=== PATIENT | female | born 1990 | race African-American/Black ===

== ENCOUNTER 2020-01-17 07:32 | Outpatient (CLI) | payer MEDICAID, SELFPAY ==
--- NOTE | ~2020-01-17 | US_ITS ---
EXAMINATION: US OB <= 14 weeks fetus DATE: 01/17/2020 09:11 INDICATION: Gestational dating. TECHNIQUE: Real-time transabdominal and transvaginal obstetric ultrasound. FINDINGS: No prior studies for comparison. The uterus measures 14.1 x 9.6 x 9.8 cm. There is an intrauterine gestational sac, with pole id entified. The crown rump length measures 5.67 cm, which correlates with a estimated gestational age of 12 weeks 2 days. heart tones are identified measuring 141 bpm. There is a small subchorion ic hemorrhage measuring 9 x 7 x 2 mm. Right ovary is unremarkable. Left ovary not visualized. IMPRESSION: 1. SL IUP with an EGA of 12 weeks, 2 days (EDC by current ultrasound of 07/29/2020). 2: Small subchorionic hemorrhage. Reviewed, dictated and finalized at location A. IMPRESSION: 1. SL IUP with an EGA of 12 weeks, 2 days (EDC by current ultrasound of 07/30/19). 2: Small subchorionic hemorrhage.
== END 2020-01-17 07:33 | disposition home or self-care (01) ==
PROVIDERS: Visit Provider Obstetrics & Gynecology
DX: Z36.87 Encounter for antenatal screening for uncertain dates (principal)
CPT/HCPCS: 76801

== ENCOUNTER → 2020-03-05 10:15 | Outpatient (CLI) | payer MEDICAID, SELFPAY ==
--- NOTE | ~2020-03-05 | US_ITS ---
EXAMINATION: US OB >= 14 weeks Fetus DATE: 03/05/2020 10:55 INDICATION: anatomic survey. TECHNIQUE: Real-time ultrasound of the pelvis was performed. COMPARISON: Ultrasound 01/17/2020 FINDINGS: There is a single living fetus in vertex presentation. The placenta is anterior, 7.5 cm from the cer vix. heart rate is 149 beats per minute (bpm). The amniotic fluid volume is subjectively normal . The following biometric data were obtained: Biparietal diameter (BPD): 4.2 cm; head circumference (HC): 15.6 cm; abdominal circumference (AC): 12 .2 cm; femur length (FL): 2.9 cm. These measurements are concordant. Estimated weight is 235 g +/- 35 g, which correlates with 10th percentile when 07/29/20 is used as estimated date of delivery. As single measurements, these parameters are each equal to the following estimated gestational ages w ith ranges of +/- 2 standard deviations: BPD: 18 weeks 5 days (17 weeks 0 days - 20 weeks 4 days). HC: 18 weeks 4 days (17 weeks 0 days - 20 weeks 0 days). AC: 17 weeks 6 days (16 weeks 2 days - 19 weeks 4 days). FL: 18 weeks 5 days (17 weeks 0 days - 20 weeks 4 days). estimated gestational age based solely on measurements from this exam is 18 weeks 3 days +/- 1 weeks 2 days. The cerebral ventricles, cerebellum, cisterna magna, nuchal fold, and visualized portions of the spin e are normal. The heart is normal. The diaphragm, stomach, kidneys, and bladder are normal. There are two umbilical arteries to yield a 3-vessel cord. The cord insertion is normal. IMPRESSION: 1. Single living fetus in vertex presentation. 2. Estimated weight is 235 g +/- 35 g, which correlates with 10th percentile when 07/29/20 is u sed as estimated date of delivery. This date was set by ultrasound on 01/17/2020. 3. Normal anatomic survey. Reviewed, dictated and finalized at location A. IMPRESSION: 1. Single living fetus in vertex presentation. 2. Estimated weight is 235 g +/- 35 g, which correlates with 10th percen tile when 07/29/20 is used as estimated date of delivery. This date was set by [facility] on 01/17/2020. 3. Normal anatomic survey.
== END ==
PROVIDERS: Visit Provider Obstetrics & Gynecology
DX: Z36.9 Encounter for antenatal screening, unspecified (principal); Z3A.00 Weeks of gestation of pregnancy not specified
CPT/HCPCS: 76805

== ENCOUNTER 2020-04-16 09:38 | Outpatient (CLI) | payer OTHER, SELFPAY ==
--- NOTE | ~2020-04-16 | US_ITS ---
EXAMINATION: US OB follow up DATE: 04/16/2020 10:49 INDICATION: Size greater than dates, second trimester TECHNIQUE: Real-time ultrasound of the pelvis was performed. The interpreting radiologist was not pre sent for the study. COMPARISON: None. FINDINGS: There is a single living fetus in breech presentation. The placenta is anterior. card iac activity and movement are noted. heart rate is 141 beats per minute (bpm). The amniot ic fluid index is subjectively normal. The following biometric data were obtained: Biparietal diameter (BPD): 5.9 cm; head circumference (HC): 23.7 cm; abdominal circumference (AC): 20 .5 cm; femur length (FL): 4.5 cm. These measurements are concordant. Estimated weight is 765 g +/- 114 g, which correlates with the 36th percentile when 07/29/2020 i s used as estimated date of delivery. As single measurements, these parameters are each equal to the following estimated gestational ages w ith ranges of +/- 2 standard deviations: BPD: 24 weeks 2 days +/- 2 weeks 1 days. HC: 25 weeks 6 days +/- 2 weeks 0 days. AC: 25 weeks 1 days +/- 2 weeks 1 days. FL: 25 weeks 0 days +/- 2 weeks 2 days. estimated gestational age based solely on measurements from this exam is 25 weeks 1 days +/- 1 weeks 5 days. IMPRESSION: 1. Single living fetus in breech presentation. 2. Estimated weight is 765 g +/- 114 g, which correlates with the 36th percentile when is used as estimated date of delivery. Reviewed, dictated and finalized at location A. ER UP IMPRESSION: 1. Single living fetus in breech presentation. 2. Estimated weight is 765 g +/- 114 g, which correlates with the 36th pe rcentile when 07/29/2020 is used as estimated date of delivery.
== END 2020-04-16 09:39 | disposition home or self-care (01) ==
LOC: ANHIMG 09:40
PROVIDERS: Visit Provider Obstetrics & Gynecology
DX: O26.849 Uterine size-date discrepancy, unspecified trimester (principal); Z3A.00 Weeks of gestation of pregnancy not specified
CPT/HCPCS: 76816

== ENCOUNTER 2020-05-14 10:58 | Outpatient (CLI) | payer OTHER, SELFPAY ==
[2020-05-14 12:25] LABS: Hematocrit 26.7 % (37.0-47.0); Hemoglobin 7.9 g/dL (12.0-15.0); Mean Corpuscular HGB Conc 29.6 g/dl (32-36); Mean Corpuscular Hemoglobin 23.7 pg (26-34); Mean Corpuscular Volume 80.2 fl (80-100); Mean Platelet Volume 10.8 fl (7.4-10.4); Platelet Count Result 163 k/mm3 (150-375); Red Blood Count 3.33 M/mm3 (4.2-5.4); Red Cell Distribution Width 16.5 % (11.5-14.5); White Blood Count 10.9 K/mm3 (4.5-10.0)
[2020-05-14 12:34] LABS: Glucose 1 Hour PP 50gm Dose 132 mg/dL
[2020-05-14 16:58] LABS: HIV 1/2 Ab P24 Ag Result Negative (Negative)
== END 2020-05-14 10:59 | disposition home or self-care (01) ==
LOC: ANHLAB 10:59
PROVIDERS: Visit Provider Obstetrics & Gynecology
DX: Z34.90 Encounter for supervision of normal pregnancy, unspecified, unspecified trimester (principal)
CPT/HCPCS: 36415; 82947; 85027; 86703; G0432

== ENCOUNTER 2020-06-18 07:02 | Outpatient (CLI) | payer OTHER, SELFPAY ==
[2020-06-18 07:42] LABS: Glucose Fasting Gestational 87 mg/dL (>/=95)
[2020-06-18 09:21] LABS: Glucose 1 Hour Gest 171 mg/dL (>/=180)
[2020-06-18 10:19] LABS: Glucose 2 Hour Gest 165 mg/dL (>/= 155)
[2020-06-18 11:14] LABS: Glucose 3 Hour Gest 123 mg/dL (>/=140)
== END 2020-06-18 07:03 | disposition home or self-care (01) ==
PROVIDERS: Visit Provider Obstetrics & Gynecology
DX: R73.09 Other abnormal glucose (principal)
CPT/HCPCS: 36415; 82951; 82952

== ENCOUNTER 2020-06-25 10:38 | Outpatient (CLI) | payer OTHER, SELFPAY ==
--- NOTE | ~2020-06-25 | US_ITS ---
EXAMINATION: US OB follow up DATE: 06/25/2020 11:37 INDICATION: Small for gestational age during third trimester TECHNIQUE: Real-time ultrasound of the pelvis was performed. The interpreting radiologist was not pre sent for the study. COMPARISON: 04/16/2020 FINDINGS: There is a single living fetus in vertex presentation. The placenta is anterior. card iac activity and movement are noted. heart rate is 165 beats per minute (bpm). The amniot ic fluid index is 13.5 cm which is normal. The following biometric data were obtained: Biparietal diameter (BPD): 8.6 cm; head circumference (HC): 31.3 cm; abdominal circumference (AC): 30 .8 cm; femur length (FL): 6.5 cm. These measurements are concordant. Estimated weight is 2462 g +/- 369 g, which correlates with the 31st percentile when 07/29/2020 is used as estimated date of delivery. As single measurements, these parameters are each equal to the following estimated gestational ages w ith ranges of +/- 2 standard deviations: BPD: 34 weeks 6 days +/- 3 weeks 1 days. HC: 35 weeks 1 days +/- 3 weeks 0 days. AC: 34 weeks 6 days +/- 3 weeks 0 days. FL: 33 weeks 5 days +/- 3 weeks 0 days. estimated gestational age based solely on measurements from this exam is 34 weeks 5 days +/- 2 weeks 3 days. IMPRESSION: 1. Single living fetus in vertex presentation. 2. Normal amniotic fluid index. 3. Estimated weight is 2462 g +/- 369 g, which correlates with the 31st percentile when 07/30/19 21 is used as estimated date of delivery. Reviewed, dictated and finalized at location A. WRANGLER IMPRESSION: 1. Single living fetus in vertex presentation. 2. Normal amniotic fluid index. 3. Estimated weight is 2462 g +/- 369 g, which correlates with the 31st p ercentile when 07/29/2020 is used as estimated date of delivery.
== END 2020-06-25 10:39 | disposition home or self-care (01) ==
PROVIDERS: Visit Provider Obstetrics & Gynecology
DX: O36.5930 Maternal care for other known or suspected poor fetal growth, third trimester, not applicable or unspecified (principal); Z3A.00 Weeks of gestation of pregnancy not specified
CPT/HCPCS: 76816

== ENCOUNTER 2020-07-27 06:28 | Inpatient (IN) | payer OTHER, SELFPAY ==
[2020-07-27] VITALS (98 sets, daily range): BP systolic 87–189; BP diastolic 43–111; PULSE 72–152; RESP 16–18; TEMP 36.3–37.3; O2SAT 86–100
--- NOTE | 2020-07-27 06:28 | LDADM ---
This patient, Tiny Starr, was admitted to Labor/Delivery/Recovery 105 on 07/27/20 at 06:28. Plans for labor, pain management and were discussed with patient. Patient/family oriented to hospital policies and general routines including ID bracelet, bed and alarms, visiting hours, pain management, procedures, bathroom and other care routines, personal items, smoking policy, room service/diet and guest tray routines, security routines, and visiting hours. Patient/Family are encouraged to report perceived risks to care and to ask questions if they do not understand what they are told or what they should do. See OBIX for further documentation.
[2020-07-27 06:58] LABS: Basophils Percent Auto 0.2 % (0.2-1.2); Eosinophils Absolute Auto 0.2 K/mm3 (0-0.3); Eosinophils Percent Auto 1.6 % (0-4.4); Hematocrit 31.7 % (37.0-47.0); Hemoglobin 10.2 g/dL (12.0-15.0); Immature Granulocyte Absolute 0.07 K/mm3 (0.00-0.031); Immature Granulocyte Percent A 0.8 % (0-0.5); Lymphocytes Absolute Auto 1.98 K/mm3 (0.9-3.2); Lymphocytes Percent Auto 21.5 % (18.3-44.2); Mean Corpuscular HGB Conc 32.2 g/dl (32-36); Mean Corpuscular Hemoglobin 26.8 pg (26-34); Mean Corpuscular Volume 83.4 fl (80-100); Mean Platelet Volume 11.1 fl (7.4-10.4); Monocytes Absolute Auto 1.1 K/mm3 (0.1-0.6); Monocytes Percent Auto 11.5 % (2.6-8.5); Neutrophils Absolute Auto 5.9 K/mm3 (1.3-6.7); Neutrophils Percent Auto 64.4 % (45.5-73.1); Platelet Count Result 162 k/mm3 (150-375); Red Cell Distribution Width 21.9 % (11.5-14.5); White Blood Count 9.2 K/mm3 (4.5-10.0)
[2020-07-27] MEDS: LACTATED RINGERS 1,000 ML 125 ML IV CONT ×2 (07:06→10:47)
[2020-07-27] MEDS: AMPICILLIN 2 GM/NS 100 ML 2 GM/100 ML BAG IVPB (07:06)
[2020-07-27] MEDS: OXYTOCIN 30 UNITS/NS 500 ML 30 UNITS/500 ML BAG IV CONT (07:06)
--- NOTE | 2020-07-27 08:13 | WPDOBADMIT ---
Obstetrics - Admit Note Admission Note: record reviewed. No pertinent additions to the history and/or any subsequent changes in the physical findings that are not consistent with the expected course of the were found. Additions to the history and/or subsequent changes in the physical findings follow. at 39+2 for induction of labor. Cervix 08/03/-2. AROM with clear fluid. Continue pitocin. GBS + urine so continue antibiotics.
[2020-07-27] MEDS: AMPICILLIN 1 GM/NS 50 ML 1 GM/50 ML BAG IVPB (10:47)
--- NOTE | 2020-07-27 14:03 | PM.OBPRVD ---
OB - Delivery Note Procedure Delivery date: 07/27/20 Procedure: events: Labor Induction Induction method: AROM and per pitocin protocol Delivery monitor: external FHT and external uterine Route of delivery: Laceration Description: Perineal - 1st Degree Delivery repair: vicryl (3-0 two stitches) Specimen: No Quantitative Blood Loss (ml): 87 Anesthesia type: Epidural Disposition: floor [place] Baby Date of : 07/27/20 Time of : 13:49 Weeks of gestation at delivery: 39 Infant gender: Female Weight (pounds): 7 Weight (ounces): 15 presentation: vertex position: Right Occiput Anterior Placenta delivery description: Spontaneous cord vessel description: 3 Vessels and Clamped/Cut score one minute: 9 score five minutes: 9
[2020-07-27] MEDS: OXYTOCIN 30 UNITS/NS 500 ML 30 UNITS/500 ML BAG 125 UNITS IV CONT (14:15)
[2020-07-27] MEDS: BENZOCAINE 20% AER SPR (*SP) 56 GM CAN 1 SPRAY TOPICAL (15:54)
[2020-07-27] MEDS: WITCH HAZEL 40 PADS 1 PAD TOPICAL (15:54)
--- NOTE | 2020-07-27 16:15 | PC.NURSE ---
Patient transferred to post room #276 per wheelchair from labor and delivery. Support person present. Oriented to unit, room, information board, rooming in, admission packet and security measures. Patient verbalizes understanding.
[2020-07-27] MEDS: IBUPROFEN 600 MG TABLET PO (18:44)
[2020-07-27] MEDS: ACETAMINOPHEN 325 MG TABLET 650 MG PO (22:34)
[2020-07-28] MEDS: IBUPROFEN 600 MG TABLET PO ×2 (02:14→09:56)
[2020-07-28] MEDS: ACETAMINOPHEN 325 MG TABLET 650 MG PO ×2 (04:33→16:19)
[2020-07-28 04:36] VITALS: BP 112/79; PULSE 79; RESP 16; TEMP 36.7
[2020-07-28 05:17] LABS: Hematocrit 29.5 % (37.0-47.0); Hemoglobin 9.4 g/dL (12.0-15.0)
[2020-07-28 07:20] VITALS: BP 117/81; PULSE 90; RESP 18; TEMP 37.3; O2SAT 100
--- NOTE | 2020-07-28 07:43 | PM.OBPNVD ---
OB - PN: Subj Subjective Date/time seen: 07/28/20 07:43 Patient comments: no complaints, pain well controlled and other (Lochia similar to menses) [place] baby status: doing well OB - PN: Obj Data Labs CBC & Chem 7: 07/28/20 04:33 Labs: Laboratory Results - last 24 hr 07/27/20 07/28/20 06:53 04:33 Hgb 9.4 L Hct 29.5 L Blood Type B Positive Antibody Screen Negative OB - PN A/P Plan day: 1 (s/p vaginal delivery, doing well) Plan: routine care Time Spent With Patient Time: Total time spent is greater than 50% in coordination of care (as documented) at patient's floor/unit and/or counseling patient: Exam Const: General: no acute distress GI: Inspection: other (Fundus firm and nontender at umbilicus) GI Palp: Yes Soft to palpation and No Tenderness to palpation present (GI) Extrem: General: no edema
--- NOTE | 2020-07-28 07:43 | PM.OBDSVD ---
DS: Admitting Diagnosis Admitting Diagnosis Admitting Diagnosis: Full term DS: Discharge Diagnosis Discharge Diagnosis (1) Normal vaginal delivery: Code(s): O80 - Encounter for full-term uncomplicated delivery Status: Acute OB - DS: Summary OB Procedures : None OB Procedures Intrapartum: Spontaneous Vag Delivery OB Procedures: : None Peripartum Data Delivery Method: Natural Vaginal Laceration Description: Perineal - 1st Degree complications: none Status at Discharge Functional status at discharge: independent ambulation Overall status at discharge: patient is progressing back to baseline Time Spent with Patient Time attestation: Total time spent providing and/or coordinating discharge services: Time spent: Less than 30 minutes DS: Data Data Completed and Pending Labs on day of discharge: Labs from last 24 hours 07/28/20 07/27/20 04:33 06:53 Hgb 9.4 L Hct 29.5 L Blood Type B Positive Antibody Screen Negative Discharge Plan Discharge Attending physician on discharge: Lorri Yeager Discharging Clinician: Lorri Yeager Anticipated Discharge Date/Time: 07/29/20 14:00 Patient Disposition: Home, Self-Care Activity: may shower and pelvic rest Diet: as tolerated Patient Instructions: Antibiotic Form Stand Alone Forms: General Discharge Information Follow-up/Referrals: Lorri Yeager MD [Physician] - 4 Weeks Discharge Medications: New ibuprofen 600 mg Tablet 600 mg PO Q6H PRN (Reason: Cramping) Qty: 60 RF: 0 Continued DHA 200 mg capsule 200 mg PO DAILY RF: 0 Slow Fe 142 mg (45 mg iron) tablet extended release 142 mg PO DAILY RF: 0 Stool Softener 50 mg capsule 50 mg PO DAILY RF: 0 Date of admission: 07/27/20 06:28 Primary Care Provider: PHYSICIAN,CANCER REGISTRY COORDINATOR Admitting Provider: Lorri Yeager Attending physician on admission: Lorri Yeager Condition: Stable
--- NOTE | 2020-07-28 07:47 | WPDANLDPN2 ---
Anes-Prog Note L&D Date/Time: 07/28/20 07:47 Comfortable throughout: labor and delivery Neuraxial method: epidural Epidural/Spinal procedure site: clean & non-tender Neuro status: Neuro function grossly intact. Cardiovascular status: normal Respiratory status: normal Airway patency: baseline Mental status: baseline Post-Op hydration status: normal Vital Signs: Last Vital Signs Temp 36.7 C 07/28/20 04:36 Pulse 79 07/28/20 04:36 Resp 16 07/28/20 04:36 BP 112/79 07/28/20 04:36 Pulse Ox 86 L 07/27/20 13:48 Pain score (VAS): 3/10 I/O: Intake & Output 07/27/20 07/27/20 07/28/20 15:59 23:59 07:59 Intake Total 1150 Output Total 87 73 Balance 1063 -73 Post-procedural complaints: none Patient feedback: Patient satisfied with anesthetic care.
[2020-07-28 07:55] LABS: Rapid Plasma Reagin Non-Reactive (NonReactive)
[2020-07-28] MEDS: POLYSACCHARIDE IRON COMPLEX 150 MG CAPSULE PO ×2 (09:53→16:20)
[2020-07-28] MEDS: DOCUSATE SODIUM 100 MG CAPSULE PO ×2 (09:53→16:19)
[2020-07-28 10:00] VITALS: PULSE 90; RESP 18; O2SAT 100
[2020-07-28 20:00] VITALS: BP 126/81; PULSE 94; RESP 16; TEMP 36.9
[2020-07-29 07:45] VITALS: BP 124/80; PULSE 70; RESP 16; TEMP 36.9; O2SAT 97
[2020-07-29 09:00] VITALS: PULSE 70; RESP 16; O2SAT 97
--- NOTE | 2020-07-29 09:01 | PM.OBPNVD ---
OB - PN: Subj Subjective Date/time seen: 07/29/20 09:01 Patient comments: no complaints, pain well controlled and other (Lochia similar to menses) [place] baby status: doing well OB - PN: Obj Data Labs CBC & Chem 7: 07/28/20 04:33 OB - PN A/P Plan day: 2 (s/p vaginal delivery, doing well) Plan: routine care, discharge home and other (Follow up in office in 4 weeks) Time Spent With Patient Time: Total time spent is greater than 50% in coordination of care (as documented) at patient's floor/unit and/or counseling patient: Exam Const: General: no acute distress GI: Inspection: other (Fundus firm and nontender below umbilicus) GI Palp: Yes Soft to palpation and No Tenderness to palpation present (GI) Extrem: General: no edema
[2020-07-30 10:07] VITALS: BP 122/75; PULSE 97; RESP 20; TEMP 37.1; O2SAT 99
== END 2020-07-29 10:30 | disposition home or self-care (01) | DRG 560 ==
LOC: ANHLDR 06:34 → ANHOB2 16:29
PROVIDERS: Admitting Provider Obstetrics & Gynecology; Visit Provider Obstetrics & Gynecology
DX: O99.824 Streptococcus B carrier state complicating childbirth (principal); Z37.0 Single live birth; Z3A.39 39 weeks gestation of pregnancy; O70.0 First degree perineal laceration during delivery; O36.8330 Maternal care for abnormalities of the fetal heart rate or rhythm, third trimester, not applicable or unspecified
CPT/HCPCS: 36415; 85014; 85018; 85025; 86592; 86850; 86900; 86901; A9270; J0290; J2590; J2795; J7120

== ENCOUNTER 2021-08-12 16:08 | Emergency (ER) | payer OTHER, SELFPAY ==
[2021-08-12 16:13] VITALS: BP 121/85; PULSE 82; RESP 18; TEMP 36.4; O2SAT 98
[2021-08-12 17:01] LABS: Alanine Aminotransferase 46 U/L (4-35); Estimated CRCL calculation 104 ml/min; Estimated Glomerular Filt Rate > 60
[2021-08-12 17:08] LABS: Prothrombin Time 12.7 Seconds (11.1-14.7)
[2021-08-12 17:24] LABS: Influenza A QL RT-PCR Negative (Negative); Influenza B QL RT-PCR Negative (Negative); SARS-CoV-2 RNA PCR Negative
--- NOTE | 2021-08-12 17:39 | ED.URI ---
HPI - URI/Sore Throat General Chief Complaint: Upper Respiratory Infection Stated Complaint: sore throat, congestion Time Seen by Provider: 08/12/21 16:20 Source: patient Mode of arrival: ambulatory Limitations: no limitations History of Present Illness HPI Narrative: Patient is 30 years old -[place] female presents with runny nose, sneezing, nasal congestion, postnasal discharge, headache, productive cough of clear sputum started 2 days ago. Patient's son who is 1-year-old had similar symptoms 2 to 3 days ago. Patient denies any fever, chills, nausea, vomiting, shortness of breath or chest pain. Related Data Home Medications Medication Instructions Recorded Confirmed docosahexaenoic acid 200 mg capsule 200 mg PO DAILY 03/02/20 07/15/20 Allergies Allergy/AdvReac Type Severity Reaction Status Date / Time No Known Allergies Allergy Verified 08/27/20 12:59 Review of Systems Review of Systems: CONSTITUTIONAL: Denies fever, chills, or sweats. EYES: Denies visual changes, redness, or discharge. ENT: Denies rhinorrhea, congestion, sore throat, or otalgia. CARDIOVASCULAR: Denies chest pain, palpitations, or edema. RESPIRATORY: Denies cough or dyspnea. GASTROINTESTINAL: Denies abdominal pain, nausea, vomiting, or diarrhea. GENITOURINARY: Denies dysuria or hematuria. SKIN: Denies rash or itching. MUSCULOSKELETAL: Denies back pain, joint pain, or myalgia. NEUROLOGIC: Denies headache, numbness, or weakness. PSYCHIATRIC: Denies anxiety or depression. PMFSH Past Medical History Medical History Migraines Vaginal delivery X3 05/09/09 Full term male 8lbs 8oz 09/21/11 Full term Male 7lbs 11oz 07/27/20 Full term Female 5lbs 15oz Family History Family History Sibling Diabetes mellitus Social History Social History Smoking status: Never smoker Alcohol intake: never Substance use: never Gender identity (if verbalized by the patient): Female Spiritual care concerns: No Exam Narrative: General appearance: Well-developed, well-nourished Skin: Normal color Head: Normocephalic, nontraumatic Eyes: Clear conjunctiva ENT: Oropharynx normal, ears normal, nose normal Neck: Supple, nontender Chest and respiratory: Airway patent, no respiratory distress, no accessory muscle use Heart: Regular rate/rhythm Abdomen: Soft, nontender, no organomegaly, quiet bowel sounds Vascular: Normal peripheral pulses, normal capillary refill. Musculoskeletal: Normal range of motion, nontender back Neurologic: Alert and oriented ?3, FARM LOAN REPRESENTATIVE is normal as tested, no gross motor deficit Course Vital Signs Vital signs: Vital Signs Temperature 36.4 C 08/12/21 16:13 Pulse Rate 82 08/12/21 16:13 Respiratory Rate 18 08/12/21 16:13 Blood Pressure 121/85 08/12/21 16:13 Pulse Oximetry 98 08/12/21 16:13 Temperature 36.4 C 08/12/21 16:13 Pulse Rate 82 08/12/21 16:13 Respiratory Rate 18 08/12/21 16:13 Blood Pressure 121/85 08/12/21 16:13 Pulse Oximetry 98 08/12/21 16:13 MDM - URI/Sore Throat Lab Data Result diagrams: 08/12/21 16:46 Labs: Lab Results 08/12/21 08/12/21 08/12/21 Range/Units 16:36 16:36 16:46 PT 12.7 (11.1-14.7) Seconds INR 1.0 Creatinine (0.7-1.0) mg/dL Estim Creat Clear Calc ml/min Estimated GFR (59 - ) ALT (4-35) U/L Influenza A (RT-PCR) Negative Cancelled (Negative) Influenza B (RT-PCR) Negative Cancelled (Negative) SARS-CoV-2 RNA (RT-PCR) Negative Grp A Beta Strep Ag 04
[2021-08-12 17:52] VITALS: BP 122/78; PULSE 80; RESP 18; TEMP 36.5; O2SAT 97
== END 2021-08-12 17:54 | disposition home or self-care (01) ==
PROVIDERS: Emergency Provider Emergency Medicine
DX: J06.9 Acute upper respiratory infection, unspecified (principal); Z20.822 Contact with and (suspected) exposure to COVID-19
CPT/HCPCS: 82565; 84460; 85610; 87081; 87502; 87880; 99283; C9803; U0003; U0005

== ENCOUNTER 2024-12-18 09:50 | Outpatient (CLI) | payer OTHER, SELFPAY ==
--- NOTE | ~2024-12-18 | MR_ITS ---
EXAMINATION: MR brain/brain stem wo con DATE: 12/18/2024 10:25 INDICATION: Migraine TECHNIQUE: Magnetic resonance imaging (MRI) of the brain and brainstem was performed without intraven ous contrast. Sequences included sagittal and axial T1-weighted SE, axial diffusion-weighted FS SE, a xial 3D SWAN, axial T2-weighted FLAIR, and axial T2-weighted FSE. Apparent diffusion coefficient (ADC ) maps were created. COMPARISON: None. FINDINGS: Assessment for restricted diffusion and susceptibility artifact is limited in the anterior frontal an d temporal lobes due to prominent magnetic field artifact related to orthodontic braces in the oral c avity. There are no areas of restricted diffusion to suggest acute infarction. No intracranial hemorr pema or abnormal intracranial mass lesion. There are no intraparenchymal signal abnormalities seen on the other pulse sequences. The ventricles are symmetric and normal in size. There are no abnormal ex tra-axial fluid collections. Flow voids are seen in the cerebral arteries on the T2-weighted sequence s consistent with their expected patency. There is mucosal thickening throughout the paranasal sinuse s with near complete filling of sinus, the small frontal sinuses and multiple ethmoid air cells sugge sting acute sinusitis. Visualized orbits and soft tissues are unremarkable. IMPRESSION: 1. Normal brain. Limited evaluation for restricted diffusion or susceptibility artifact in the anteri or frontal and temporal lobes due to metallic field artifact from patient's orthodontic braces. 2. Extensive sinus disease with large amount of fluid/mucus in the bilateral ethmoid and frontal sinu ses. Correlate clinically for acute sinusitis. Reviewed, dictated and finalized at location A. IMPRESSION: 1. Normal brain. Limited evaluation for restricted diffusion or susceptibility artifact in the anterior frontal and temporal lobes due to metallic field artif act from patient's orthodontic braces. 2. Extensive sinus disease with large amount of fluid/mucus in the bilateral et hmoid and frontal sinuses. Correlate clinically for acute sinusitis.
--- OUTSIDE RECORDS SUMMARY | 2024-12-18 10:06 | XMS_ITS | Clinical Summary ---
Author Organization [facility] Address [address] [place] [address] Care Team Providers Care Retail Loan Officer Name Role Phone No, Physician Primary Care Provider [phone] Allergies No known active allergies Medications ondansetron ODT (ZOFRAN-ODT) 4 mg disintegrating tablet Dissolve 1 tablet for mild to moderate nausea or vomiting or 2 tablets for severe nausea or vomiting oral twice a day as needed. 15 tablet 06/21/19 Active Additional Information Patient not taking.Reported on 05/16/2021 topiramate (TROKENDI XR) 100 mg capsule,extended release 24hr Take one capsule by mouth once a day 30 capsule 5 06/21/19 19 Active Additional Information Patient not taking.Reported on 05/16/2021 albuterol HFA (PROVENTIL HFA,VENTOLIN HFA,PROAIR HFA) 90 mcg/actuation inhalerIndications :Wheezing Inhale 2 puffs every 6 (six) hours as needed for wheezing or shortness of breath 1 each 08/18/19 22 Active SUMAtriptan (Imitrex) 100 mg tabletIndications: Migraine Take 1 tablet (100 mg total) by mouth once as needed for migraine (at the onset of migraine headache. Can repeat 1 tie in 24 hours.) for up to 1 dose 30 tablet 02/22/20 22 Active ketorolac (TORADOL) 10 mg tablet Take 1 tablet (10 mg total) by mouth every 6 (six) hours as needed for pain 20 tablet 02/22/20 22 Active predniSONE (DELTASONE) 10 mg tablet Take 1 tablet by mouth 2 times daily x 5 days. 10 tablet 02/22/20 22 Active Additional Information Patient not taking.Reported on 01/05/2023 Active Problems Problem Noted Date Diagnosed Date Exomphalos 04/13/2014 Overview (08/11/2016): Umbilical hernia Medical History Medical History Date Comments Migraines Social History Tobacco Use Types Packs/Day Years Used Date Smoking Tobacco: Never Smokeless Tobacco: Never Tobacco Cessation:Counseling Given: Not Answered Alcohol Use Standard Drinks/Week Comments Yes 0 (1 standard drink = 0.6 oz pur e alcohol) Personal Safety Answer Date Recorded Getting School Help Needed Not on file 07/04 Comments No Sex and Gender Information Value Date Recorded Sex Assigned at Not on file 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 Gender Identity Not on file Sexual Orientation Not on file Obstetrics History Last Filed Vital Signs Vital Sign Reading Time Taken Comments Blood Pressure 104/70 01/05/2023 5:25 PM CDT Pulse 95 01/05/2023 5:25 PM CDT Temperature 37.5 C (99.5 F) 01/05/2023 5:25 PM CDT Respiratory Rate 22 01/05/2023 5:25 PM CDT Oxygen Saturation 99% 01/05/2023 5:25 PM CDT Inhaled Oxygen Concentration - - Weight 77.1 kg (170 lb) 01/05/2023 5:25 PM CDT Height 165.1 cm (5' 5) 01/05/2023 5:25 PM CDT Body Mass Index 28.29 01/05/2023 5:25 PM CDT Plan of Treatment Health Maintenance Due Date Last Done Comments Cervical Cancer Screening 1990 Depression Screening 1990 Hepatitis C Screening 1990 DTaP/Tdap/Td Vaccine (6 - Tdap) 2001 01/18/1996, 12/30/1992, 05/15/1991, Additional history exists Varicella Vaccines (1 of 2 - 13+ 2-dose series) 10/09/2003 Hepatitis B Screening 2008 Regular Well Visit/Exam 18-64 2008 HPV Vaccines (2 - 3-dose series) 12/13/2015 11/15/2015 Covid-19 Vaccine ( season) 2024 03/27/2021, 02/27/2021 Influenza Vaccine (#1) 2025 Pneumococcal vaccine <65 Aged Out No longer eligible based on patient's age to complete this topic Insurance [facility] Care Teams Retail Loan Officer Relationship Specialty Start Date End Date No, Physician PCP - General 12/29/16
--- OUTSIDE RECORDS SUMMARY | 2024-12-18 10:06 | XMS_ITS | Clinical Summary ---
Author Organization [facility] [address] Address [address] [place] [id number] Care Team Providers Care Fountain Pen Turner Name Role Phone Fallon Bill MD Primary Care Provider [phone] Allergies No known active allergies Medications No known medications Active Problems No known active problems Social History Tobacco Use Types Packs/Day Years Used Date Smoking Tobacco: Never Smokeless Tobacco: Never Comments No Sex and Gender Information Value Date Recorded Sex Assigned at Not on file Legal Sex Female 7:26 PM CDT Gender Identity Not on file Sexual Orientation Not on file Last Filed Vital Signs Vital Sign Reading Time Taken Comments Blood Pressure 108/72 08/16/2022 2:13 PM CDT Pulse 88 12/03/2018 7:35 PM CDT Temperature 37.1 C (98.8 F) 12/03/2018 7:35 PM CDT Respiratory Rate 18 12/03/2018 7:35 PM CDT Oxygen Saturation 99% 12/03/2018 7:35 PM CDT Inhaled Oxygen Concentration - - Weight 71.2 kg (157 lb) 08/16/2022 2:13 PM CDT Height 165.1 cm (5' 5) 08/16/2022 2:13 PM CDT Body Mass Index 26.13 08/16/2022 2:13 PM CDT Plan of Treatment Health Maintenance Due Date Last Done Comments HPV VACCINES (1 - 3-dose series) 2005 DTAP/TDAP/TD VACCINES (1 - Tdap) 2009 HEPATITIS B VACCINES (1 of 3 - 19+ 3-dose series) 08/2009 HPV/Cotest (21-29) 10/09/2011 CERVICAL CANCER SCREENING 2020 HPV/Cotest (30-65) 2020 PAP SMEAR 2020 INFLUENZA VACCINE (#1) 2024 Insurance [employer] * Guarantor: [employer]) Account Type Relation to Patient Date of Phone Billing Address Corporate Employer ATTN: [employer] [id number] [address] [employer] Care Teams Fountain Pen Turner Relationship Specialty Start Date End Date Fallon Bill MD [address] [facility] [address] [place] [address] PCP - General Pediatrics 08/16/22
== END 2024-12-18 09:51 | disposition home or self-care (01) ==
PROVIDERS: PCP Nurse Practitioner Family; Visit Provider Nurse Practitioner Family
DX: R94.02 Abnormal brain scan (principal); J32.2 Chronic ethmoidal sinusitis; J32.1 Chronic frontal sinusitis; G43.909 Migraine, unspecified, not intractable, without status migrainosus; Z98.890 Other specified postprocedural states
CPT/HCPCS: 70551